=== PATIENT | female | born 1995 | race African-American/Black ===

== ENCOUNTER 2022-01-26 10:27 | Emergency (ER) | payer OTHER, SELFPAY ==
--- NOTE | 2022-01-26 10:30 | ED.FEMALEGU ---
HPI - Female Genitourinary General Chief complaint: Urogenital-Female Stated complaint: Sore on the upper lip. Possible BV Time Seen by Provider: 01/26/22 10:30 Source: patient Mode of arrival: ambulatory Limitations: no limitations History of Present Illness HPI Narrative: Ms. Wisdom is a 26-year-old female patient presenting to the clinic today with complaints of possible sore to her upper lip and possible bacterial vaginosis. She reports she gets cold sores on her lip and in her nose every couple years when she gets stressed . She has been putting hydrogen peroxide on her lip and states it does not help. She reports that she gets bacterial vaginosis frequently and is having the same symptoms as before. She has been having fishy vaginal odor for the last 2 weeks. She denies abnormal vaginal discharge. She also reports a new sexual partner. She states they always use a condom but she would like to be tested for STIs. She denies dysuria, frequency, urgency, vaginal/vulvar itching, fever, chills, nausea, vomiting, pelvic or abdominal pain, flank pain. Related Data Allergies Allergy/AdvReac Type Severity Reaction Status Date / Time No Known Allergies Allergy Verified 01/26/22 10:42 Review of Systems Review of Systems: Pertinent positives per HPI. Patient denies any fever, chills, rash, headache, visual changes, dizziness, cough, runny nose, sore throat, shortness of breath, chest pain, palpitations, nausea, vomiting, diarrhea, constipation, abdominal pain, or any urinary issues. PMFSH Comments At the time of my signature, I reviewed and agree with the nursing past medical, surgical, social, and family history. There is no relevant family history pertinent to the patient complaint. Exam Narrative: General: Well-developed, well nourished, in no apparent distress Head: Normocephalic, atraumatic Eyes: Pupils equally round and reactive to light bilaterally, EOM intact, sclera and conjunctive clear, no discharge, lids normal Ears: TMs intact and clear, ear canals clear, no drainage, grossly hearing normal. Nose: Nares patent, no discharge, no inflammation, no sinus tenderness. Mouth: Oropharynx without lesions or masses, good dentition, MMM, white ulcerated lesion on the mid upper lip. Neck: Supple, trachea midline, no enlargement of anterior or posterior cervical nodes, no thyroid masses or goiter palpable. Cardio: Regular rate and rhythm, s1 and s2 normal, no murmur appreciated. Resp: Clear to auscultation bilaterally anteriorly and posteriorly, no rhonchi, rales, wheezing or rubs Abdomen: Soft, pliable, nontender to palpation, bowel sounds present all 4 quadrants, no organomegaly, no CVAT tenderness : external genitalia without mass or lesion, normal hair distribution, copious amounts of white, frothy discharge with fishy odor on vaginal examination, cervix appears normal and is not erythematous, no cervical motion tenderness Course Course Emergency Course: Portions of this record may have been created with voice recognition software. Level of Care: Express Care Visit Vital Signs Vital signs: Vital Signs Temperature 37.2 C 01/26/22 10:37 Pulse Rate 65 01/26/22 10:37 Respiratory Rate 16 01/26/22 10:37 Blood Pressure 114/68 01/26/22 10:37 Pulse Oximetry 100 01/26/22 10:37 Oxygen Delivery Room Air 01/26/22 10:37 Temperature 37.2 C 01/26/22 10:42 Pulse Rate 65 01/26/22 10:42 Respiratory Rate 16 01/26/22 10:42 Blood Pressure 114/68 01/26/22 10:42 Pulse Oximetry 100 01/26/22 10:42 Oxygen Delivery Room Air 01/26/22 10:42 Vital signs reviewed MDM - Female Genitourinary MDM Narrative Medical decision making narrative: At the time of exam patient is resting comfortably on the table. She had copious, frothy, white, malodorous discharge without evidence of cervicitis on vaginal exam. I will treat for bacterial vaginosis and trichomoniasis with oral metronidazole and defer chlamyd
[2022-01-26 10:37] VITALS: BP 114/68; PULSE 65; RESP 16; TEMP 37.2; O2SAT 100
[2022-01-26 10:42] VITALS: BP 114/68; PULSE 65; RESP 16; TEMP 37.2; O2SAT 100
== END 2022-01-26 11:10 | disposition home or self-care (01) ==
PROVIDERS: Emergency Provider Nurse Practitioner Family
DX: B00.1 Herpesviral vesicular dermatitis (principal); N89.8 Other specified noninflammatory disorders of vagina
CPT/HCPCS: 87070; 87491; 87591; 87661; 99204; G0463